=== PATIENT | female | born 1995 | race African-American/Black ===

== ENCOUNTER 2018-01-12 13:30 | Emergency (ER) | payer OTHER ==
[2018-01-12 13:44] VITALS: BP 120/63; PULSE 65; TEMP 98.6; BMI 31.0
--- NOTE | 2018-01-12 14:06 | PDOC ---
History of Present Illness - General Chief Complaint: Pain Stated Complaint: CHRONIC CONSTIPATION, DIARRHEA Time Seen by Provider: 01/12/18 13:41 History Source: Patient Exam Limitations: No Limitations - History of Present Illness Travel History: No Initial Comments: 01/12/18 14:01 22 y/o female with diarrhea and constipation on/off for one year. Has been to Urgent Care with no answers. Some times feels bloated. Denies dysuria, fever or chills. No SOB or chest pain, No fall or trauma. Has not taken anything for this. Has not seen a GI doctor. Denies weight loss or weight gain. Would like some blood work today to check her thyroid. Has vomited in the past with some weakness. No traveling or sick contacts. Timing/Duration: reports: intermittent Quality: reports: mild Pain Radiation: reports: no radiation Past History - Past Medical History Allergies/Adverse Reactions: Allergies Allergy/AdvReac Type Severity Reaction Status Date / Time Penicillins Allergy Verified 10/18/14 20:44 Home Medications: Ambulatory Orders Patient's Own Medication [Patient's Own Med (Nf) -] 1 each PO DAILY 01/12/18 COPD: No GI Disorders: Yes - Suicide/Smoking/Psychosocial Hx Smoking History: Never smoked Hx Alcohol Use: Yes (OCCASIONAL ONLY) Drug/Substance Use Hx: No Substance Use Type: None Review of Systems - Review of Systems Able to Perform ROS?: Yes Is the patient limited Slovak proficient: No Constitutional: Yes: Symptoms Reported. No: Chills, Fever Respiratory: No: Cough, Shortness of Breath Cardiac (ROS): No: Chest Pain ABD/GI: Yes: Constipated, Diarrhea, Nausea. No: Vomiting : No: Burning, Dysuria Endocrine: No: Intolerance to Heat, Unexplained Weight Gain, Unexplained Weight Loss *Physical Exam - Vital Signs Last Vital Signs Temp Pulse Resp BP Pulse Ox 98.6 F 65 16 120/63 100 01/12/18 13:38 01/12/18 13:38 01/12/18 13:38 01/12/18 13:38 01/12/18 13:38 - Physical Exam General Appearance: Yes: Nourished, Appropriately Dressed. No: Apparent Distress HEENT: positive: EOMI, NORIS, Normal ENT Inspection, Normal Voice, Symmetrical, Pharynx Normal Neck: positive: Trachea midline, Normal Thyroid, Supple. negative: Tender, Rigid Respiratory/Chest: positive: Lungs Clear, Normal Breath Sounds. negative: Chest Tender, Respiratory Distress Cardiovascular: positive: Regular Rhythm, Regular Rate, S1, S2. negative: Edema , JVD, Murmur Vascular Pulses: Femoral (R): 4+, Femoral (L): 4+, Carotid (R): 4+, Carotid (L) : 4+, Dorsalis-Pedis (R): 4+, Doralis-Pedis (L): 4+ Gastrointestinal/Abdominal: positive: Normal Bowel Sounds, Flat, Soft. negative : Tender (no RLQ or LLQ tenderness, no RUQ or LUQ tenderness +BS), Organomegaly , Pulsatile Mass, Distended Lymphatic: negative: Adenopathy, Tenderness, Other Musculoskeletal: positive: Normal Inspection. negative: CVA Tenderness Extremity: positive: Normal Capillary Refill, Normal Inspection, Normal Range of Motion, Tender Integumentary: positive: Normal Color, Dry, Warm Neurologic: positive: head of store operations II-XII NML intact, Fully Oriented, Alert, Normal Mood/ Affect, Normal Response, Motor Strength 5/5 Progress Note - Progress Note Progress Note: Pt with long standing abdominal pain, bloating/constipation/diarrhea with vomiting. Follow up GI and will obtain blood work Pt is in agreement with plan Discussed with patient possibility of IBS/Crohn's Await TSH *DC/Admit/Observation/Transfer Diagnosis at time of Disposition: Irritable bowel syndrome (IBS) Qualifiers: Irritable bowel syndrome type: unspecified Qualified Code(s): K58.9 - Irritable bowel syndrome without diarrhea - Discharge Dispostion Disposition: HOME Condition at time of disposition: Good Admit: No - Referrals Referrals: Nathan Berry MD [Staff Physician] - - Patient Instructions Printed Discharge Instructions: DI for Irritable Bowel Syndrome Additional Instructions: Fluids, rest, Tylenol Follow up with [facility] If worsen return to ER - Post Discharge Activity
[2018-01-12 14:24] LABS: URINE APPEARANCE Clear; URINE BILIRUBIN Negative (NEGATIVE); URINE BLOOD Negative (NEGATIVE); URINE GLUCOSE (UA) Negative (NEGATIVE); URINE KETONE Negative (NEGATIVE); URINE LEUK ESTERASE Negative (NEGATIVE); URINE NITRITE Negative (NEGATIVE); URINE PROTEIN Negative (NEGATIVE); URINE UROBILINOGEN 0.2 (0.2-1.0)
[2018-01-12 14:25] LABS: URINE COLOR YELLOW
== END 2018-01-12 14:44 | disposition home or self-care (01) ==
LOC: FER 13:30
DX: K58.9 Irritable bowel syndrome, unspecified (principal)
CPT/HCPCS: 36415; 81003; 84443; 84703; 99282-25

== ENCOUNTER 2022-08-02 21:05 | Emergency (ER) | payer OTHER ==
[2022-08-02 21:36] VITALS: BP 137/81; PULSE 88; RESP 16; TEMP 97.5; BMI 34.3
[2022-08-02] MEDS ORDERED: ALBUTEROL SO4 2.5/IPRATROPIUM 0.5 INH SOL 3 ML VIAL.NEB. NEB ONE ×2 (21:55→21:57)
== END 2022-08-02 22:41 | disposition home or self-care (01) ==
LOC: FER 21:05
PROC: 3E0F7GC Introduction of Other Therapeutic Substance into Respiratory Tract, Via Natural or Artificial Opening (ICD-10-PCS; principal; 2022-08-02)
DX: R06.89 Other abnormalities of breathing (principal)
CPT/HCPCS: 99283-25

== ENCOUNTER 2022-09-26 20:52 | Emergency (ER) | payer OTHER ==
[2022-09-26 21:13] VITALS: BP 131/78; PULSE 86; RESP 16; TEMP 98.1; BMI 37.3
[2022-09-26] MEDS ORDERED: LACTATED RINGERS SOLUTION 1000 ML INFUS.BAG IV ONE (21:34)
[2022-09-26 22:04] LABS: HEMATOCRIT 35.5 % (32.4-45.2); HEMOGLOBIN 12.6 G/dL (10.7-15.3); MCH 30.9 pg (25.7-33.7); MCHC 35.4 g/dl (32.0-36.0); MEAN CELL VOLUME 87.3 fl (80-96); MEAN PLT VOLUME 7.8 fl (7.5-11.1); PLATELET COUNT 323.4 10^3/uL (134-434); RBC 4.07 10^6/uL (3.60-5.2); RDW 13.5 % (11.6-15.6); WHITE BLOOD COUNT 10.3 10^3/uL (4.0-10.8)
[2022-09-26 22:17] LABS: ALBUMIN 3.8 g/dl (3.4-5.0); BILIRUBIN,TOTAL 0.4 mg/dl (0.2-1); CALCIUM 9.1 mg/dl (8.5-10); CREATININE 0.6 mg/dl (0.55-1.3)
[2022-09-26 22:19] LABS: PLATELET ESTIMATE ADEQUATE
[2022-09-26] MEDS ORDERED: ONDANSETRON 4 MG TABLET PO ONE (23:51)
[2022-09-27] MEDS ORDERED: ONDANSETRON *ODT* 4 MG TABLET ONE (00:02)
== END 2022-09-27 00:18 | disposition home or self-care (01) ==
LOC: FER 20:52
DX: O21.9 Vomiting of pregnancy, unspecified (principal); Z3A.00 Weeks of gestation of pregnancy not specified
CPT/HCPCS: 36415; 80053; 81003; 84702; 85027; 99284-25